=== PATIENT | male | born 1955 | race African-American/Black ===

== ENCOUNTER 2020-08-24 09:29 | Emergency (ER) | payer OTHER ==
[~2020-08-24] VITALS: Ht 170.2 cm; Wt 88.0 kg
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
--- NOTE | 2020-08-24 09:30 | NUR ---
Patient to ER bed 4 to gown for evaluation. Side rails up.
[2020-08-24 09:34] VITALS: BP_SYST 144
--- NOTE | 2020-08-24 09:35 | NUR ---
ER Dr. Naylor at bedside examining patient.
[2020-08-24] MEDS ORDERED: HYDROcodone/ACETAMIN 5-325 MG TAB (NORCO/ VICODIN) PO ONE (09:45)
--- NOTE | 2020-08-24 10:31 | NUR ---
Radiology at bedside for hip x-ray
[2020-08-24] MEDS ORDERED: DIAZEPAM 5 MG TABLET (VALIUM) PO ONE (12:00)
--- NOTE | 2020-08-24 12:07 | NUR ---
Patient transported to radiology via wheelchair, accompanied by staff.
[2020-08-24 12:22] LABS: BASOPHILS % (AUTO) 0.4 % (0.0-2.0); EOSINOPHILS % (AUTO) 0.3 % (0.0-4.0); HEMATOCRIT 41.3 % (36-54); HEMOGLOBIN 14.3 g/dL (14.0-18.0); LYMPHOCYTES # (AUTO) 1.4 K/uL (1.0-5.5); LYMPHOCYTES % (AUTO) 14.8 % (20.5-51.5); MEAN CORPUSCULAR HEMOGLOBIN 31 pg (27-31); MEAN CORPUSCULAR HGB CONC 35 % (32-36); MEAN CORPUSCULAR VOLUME 90 fL (79.0-98.0); MONOCYTES # (AUTO) 0.9 K/uL (0.0-1.0); MONOCYTES % (AUTO) 10.3 % (1.7-9.3); NEUTROPHILS # (AUTO) 6.8 K/uL (1.8-7.7); NEUTROPHILS % (AUTO) 74.2 % (40.0-70.0); PLATELET COUNT (AUTO) 281 K/uL (130-430); RED BLOOD CELL COUNT(AUTO) 4.59 MIL/uL (4.2-6.2); RED CELL DISTRIBUTION WIDTH 13.7 % (9.0-15.0); WHITE BLOOD COUNT (AUTO) 9.2 K/uL (4.8-10.8)
[2020-08-24 13:21] LABS: CALCIUM 9.4 mg/dL (8.4-11.0); CREATININE 1.68 mg/dL (0.55-1.30); POTASSIUM 4.2 mmol/L (3.5-5.1)
[2020-08-24 13:46] LABS: CKMB RELATIVE INDEX 0.8 (0.0-2.9); CREATINE KINASE MB 6.6 ng/mL (0-3.6)
--- NOTE | 2020-08-24 15:10 | NUR ---
Patient given written and verbal discharge instructions and verbalizes understanding. ER MD discussed with patient the results and treatment provided. Patient in stable condition. ID arm band removed. No prescriptions given. Patient educated on pain management and to follow up with PMD. Pain Scale 0. Opportunity for questions provided and answered. Medication side effect fact sheet provided.
[2020-08-24 15:13] VITALS: BP_SYST 144
== END 2020-08-24 15:13 | disposition home or self-care (01) ==
LOC: SED 09:29
DX: M25.552 Pain in left hip (principal); F14.10 Cocaine abuse, uncomplicated
CPT/HCPCS: 36415; 72192-TC; 73502; 76376; 80048; 82550-TC; 82553-TC; 85025; 99285